=== PATIENT | female | born 1980 | race Caucasian/White ===

== ENCOUNTER 2023-07-05 10:30 | Observation (INO) | payer MEDICAID, SELFPAY ==
[2023-07-05] VITALS (21 sets, daily range): BP systolic 105–125; BP diastolic 50–82; PULSE 84–111; RESP 14–26; TEMP 36.6–38.1; O2SAT 94–99
--- NOTE | 2023-07-05 10:30 | RT.EKG_ITS ---
APPROVED REPORT Exam: Resting ECG Reason for Exam: sepsis Patient Location: E HR:106 bpm ECG Measurements Heart Rate 106 AXIS WV 153 P 55 QRSd 89 QRS 20 QT 332 T 43 QTc 442 Conclusion Sinus tachycardia...rate> 99 Low voltage, precordial leads...precordial leads <1.0mV Borderline ST elevation, anterior leads...ST >0.15mV in V1-V4
--- NOTE | 2023-07-05 11:00 | DI.CT_ITS ---
Exam(s) CT ABDOMEN PELVIS W EXAM: CT ABDOMEN PELVIS W CLINICAL HISTORY: recent appe, abdominal pain, ?abscess TECHNIQUE: Imaging Protocol: Axial computed tomography images with coronal and sagittal reformatted images were created and reviewed CONTRAST MATERIAL: Intravenous: Omnipaque 350 Contrast volume:100 mL Oral: No COMPARISON: No exams were available for comparison FINDINGS: ABDOMEN: Lung Bases: Normal where visualized. Liver: Normal density. No measurable mass. Portal, Superior Mesenteric, and Splenic Veins: Unremarkable. Gallbladder and Biliary Tract: Status post cholecystectomy. No significant biliary ductal dilatation . Pancreas: Normal density, no abnormal calcifications or inflammatory process. Spleen: Normal. Adrenals: No masses seen. Kidneys: Normal size, contour and axis. No radiodense stones or obstructive uropathy. No masses seen. Abdominal Aorta: Abdominal portion non-dilated. Mild atherosclerosis. Bowel: There is bowel wall thickening seen in the cecum and terminal ileum. There are a few fluid co llection seen in the right lower quadrant. The largest collection measures 4.2 x 4.8 cm. The findin gs are suspicious for abscesses. One of the fluid collections abuts and may infiltrate into the florencio cent right psoas muscle. Inflammatory stranding is seen in the right pericolic gutter there is a tra ce amount of free fluid in the pelvis. There is no evidence of bowel obstruction. The patient is st atus post appendectomy. Peritoneal Cavity: Please see the above section under bowel. No free air. Lymph Nodes: There enlarged lymph nodes seen in the right pelvis which are likely reactive. Bones: Within normal limits for the patient's age. Soft Tissues: Unremarkable. PELVIS: Bladder: Grossly unremarkable. Reproductive Organs: Unremarkable as visualized. Lymph Nodes: Within normal limits. Bones: Within normal limits for the patient's age. IMPRESSION: 1. Status post appendectomy. There are several fluid collections seen in the right lower quadrant in the surgical area. The largest measures 4.8 x 4.2 cm. These are most likely abscesses. There may be involvement with the right psoas muscle. 2. Findings were discussed with at 12:43 p.m. on 07/05/2023. RADIATION DOSE DELIVERED: 1,337.09mGy.cm Total DLP DATA REPOSITORY: All CT scans at this facility are submitted to the National Radiology Data Registry (NRDR) Dose Index Registry (DIR) with the [employer] (ACR). RADIATION OPTIMIZATION: All CT scans at this facility use at least one of these dose optimization te chniques: automated exposure control; mA and/or kV adjustment per patient size (includes targeted exa ms where dose is matched to clinical indication); or iterative reconstruction.
--- NOTE | 2023-07-05 11:06 | W.ED.GENAD ---
Discharge Plan Disposition Patient Disposition: Admit to [facility] Discharge Details Clinical Impression: Intra-abdominal abscess Primary Care Provider: Otis Philip ED Provider: Aurelio Ogden Home Meds and New Rx's Prescriptions: No Action methylphenidate HCl 20 mg Tablet 20 mg PO BID Medical Decision Making 42 yo female who states she had an appendectomy at [facility] 4 weeks ago and had a drain inserted for an abscess that she had for approximately a week and was removed, comes in with abdominal pain worsening over the past week. She states she went to [facility] yesterday and was told she had another absess, was admitted overnight and left ama this morning after multiple attempts at placing an IV. She arrives stable, caox4 speaking clearly. She has tenderness throughout the abdomen with the rlq being the most tender, no distention. Will obtain cbc, cmp, lipase and repeat ct abdomen/pelvis given continued pain wbc 12, pt with abscess on my read, spoke with Dr. Beckford from surgery who plans to admit, [place] [facility] [place]. Levo, flagyl ordered due to amoxicillin allergy Differential Diagnosis Differential Diagnosis: abscess, sbo, pancreatitis Imaging Data Radiologic Study: Attestation: I personally reviewed and interpreted this imaging study as follows: Imaging: CT Scan Radiologist's impression: Patient Name: Gonzalez Rudolph Unit #: [id number] Loc: ER ? Ordering Provider:? Aurelio Ogden M.D. Status: REG ER ? Primary Care Provider: Otis Philip Date of Exam: 07/05/23 Sex: F ? : 1980 Age: 42 ? Exam(s) a CT:CT abdomen & pelvis w Exam(s) CT ABDOMEN ? PELVIS W EXAM:? CT ABDOMEN ? PELVIS W CLINICAL HISTORY: ? recent appe, abdominal pain, ?abscess ? TECHNIQUE:? Imaging Protocol: Axial computed tomography images with coronal and sagittal reformatted images were created and reviewed CONTRAST MATERIAL:? Intravenous: Omnipaque 350 Contrast volume:100 mL Oral: No COMPARISON:? No exams were available for comparison FINDINGS: ABDOMEN: Lung Bases: Normal where visualized. Liver: Normal density. No measurable mass. Portal, Superior Mesenteric, and Splenic Veins: Unremarkable.? Gallbladder and Biliary Tract: Status post cholecystectomy.? No significant biliary ductal dilatation.? Pancreas: Normal density, no abnormal calcifications or inflammatory process. Spleen: Normal. Adrenals: No masses seen. Kidneys: Normal size, contour and axis. No radiodense stones or obstructive uropathy. No masses seen. Abdominal Aorta: Abdominal portion non-dilated. Mild atherosclerosis. Bowel: There is bowel wall thickening seen in the cecum and terminal ileum.? There are a few fluid collection seen in the right lower quadrant.? The largest collection measures 4.2 x 4.8 cm.? The findings are suspicious for abscesses.? One of the fluid collections abuts and may infiltrate into the adjacent right psoas muscle.? Inflammatory stranding is seen in the right pericolic gutter there is a trace amount of free fluid in the pelvis.? There is no evidence of bowel obstruction.? The patient is status post appendectomy.? Peritoneal Cavity: Please see the above section under bowel.? No free air. Lymph Nodes: There enlarged lymph nodes seen in the right pelvis which are likely reactive.? Bones: Within normal limits for the patient's age.? Soft Tissues: Unremarkable. PELVIS: Bladder: Grossly unremarkable.? Reproductive Organs: Unremarkable as visualized. Lymph Nodes: Within normal limits. Bones: Within normal limits for the patient's age.? IMPRESSION: 1. Status post appendectomy.? There are several fluid collections seen in the right lower quadrant in the surgical area.? The largest measures 4.8 x 4.2 cm.? These are most likely abscesses.? There may be involvement with the right psoas muscle.? 2. Findings were discussed with at 12:43 p.m. on 07/05/20 HPI General Mode of arrival: ambulatory. Date/Time Provider Initiated Documentation: 07/05/23 10:35. Limitations to Documentation: no limitations. Information obtained by: patient. History of Present Illness 42 year old F presents to the emergency department with the chief complaint of abdominal pain, described as moderate, Patient started experiencing this week(s) (1) and it has been constant. No relieving factors improve symptom(s), No exacerbating factors reported . Patient notes no other symptoms.. Related Data Home Medications Medication Instructions Recorded Confirmed methylphenidate HCl 20 mg tablet 20 mg PO BID 07/05/23 07/05/23 Allergies Allergy/AdvReac Type Severity Reaction Status Date / Time amoxicillin Allergy Anaphylaxis Unverified 07/05/23 11:12 bee venom protein (honey bee) Allergy Anaphylaxis Unverified 07/05/23 11:36 codeine Allergy Hives Unverified 07/05/23 11:36 Penicillins Allergy Anaphylaxis Unverified 07/05/23 11:12 General Stated Complaint: Abd Prob DEBBIE: 3 Review of Systems All systems reviewed & are unremarkable except as noted in HPI and below Constitutional Constitutional: Denies chills, Denies fever(s) and Denies weakness Cardiovascular Cardiovascular: Denies chest pain and Denies dyspnea Respiratory Respiratory: Denies cough and Denies dyspnea Gastrointestinal Gastrointestinal: Reports abdominal pain, Denies nausea and Denies vomiting Musculoskeletal Musculoskeletal: Denies joint swelling Integumentary/Breasts Skin/Breast: Denies rash Neurologic Neurologic: Denies weakness PFSH All Active Problems (Updated 07/05/23 @ 12:33 by Aurelio Ogden MD) Intra-abdominal abscess (Acute) Social History Smoking/Tobacco Use Status: Current every day Smoking risk assessment performed?: Yes Alcohol Intake: current Drug use: Never Substance use type: does not use Housing: apartment Do you feel safe at home: Yes Do you feel safe in your relationship?: Yes Additional Social history: live with grand children, dog and cat Exam Const General: no acute distress Orientation: alert HENMT Head: normal to inspection Ears: external ears normal General nose exam: external nose normal Mouth: moist mucous membranes Eyes General: appearance normal, both eyes and all related structures Neck Neck: normal visual inspection Resp Effort & Inspection: normal respiratory effort and able to speak in complete sentences Cardio Rate: regular rate GI Palpation: soft and tender Skin General skin exam: no rashes or lesions noted Neuro General: patient alert and patient oriented x3 Extrem General: normal to inspection Psych Mental Status: mental status grossly normal Course Vital Signs Vital signs: Vital Signs Temperature 36.8 C 07/05/23 10:38 Pulse 110 H 07/05/23 10:38 Respiratory Rate 24 07/05/23 10:38 Blood Pressure 125/62 07/05/23 10:38 Pulse Oximetry 97 07/05/23 10:38 Temperature 36.8 C 07/05/23 10:38 Temperature Source Oral 07/05/23 10:38 Pulse 110 H 07/05/23 10:38 Respiratory Rate 24 07/05/23 10:38 Respiratory Effort Normal 07/05/23 10:51 Blood Pressure 125/62 07/05/23 10:38 Pulse Oximetry 97 07/05/23 10:38 Oxygen Delivery Method Room Air 07/05/23 10:38 Oxygen Flow Rate 0 07/05/23 10:38 Pain Level 8 07/05/23 10:38 Lab/Test Results Lab/Test Results: 07/05/23 11:01 Blood Blood Culture - Pending 07/05/23 11:01 Blood Blood Culture - Pending
[2023-07-05] MEDS: Omnipaque 350 MG/ML 100 ML BTL IJ (11:22)
[2023-07-05] MEDS: Normal Saline - Diluent 50 ML VIAL IJ (11:22)
[2023-07-05 11:23] LABS: Abs Immature Grans 0.05 10^3/uL (0.0-0.06); Absolute Basophil Count 0.03 10^3/uL (0.0-0.2); Absolute Lymphocyte Count 1.71 10^3/uL (1.2-3.4); Absolute Neutrophil Count 9.99 10^3/uL (1.2-6.7); Basophils % 0.2; Eosinophils % 0.2; HCT 34.1 % (36.0-46.0); HGB 11.7 g/dL (11.2-15.7); Immature Grans % 0.4; Lymphocytes % 13.3; MCH 29.7 pg (27.0-33.0); MCHC 34.3 % (32.0-36.0); MCV 87 fL (80-95); MPV 8.5 fL (8.0-11.0); Neutrophils % 77.9; Platelet Count 241 10^3/uL (130-400); RBC 3.94 10^6/uL (3.93-5.22); RDW-SD 38.4 fL; WBC 12.82 10^3/uL (4.4-10.8)
[2023-07-05 11:25] LABS: Absolute Eosinophil Count 0.03 10^3/uL (0.0-0.7); Absolute Monocyte Count 1.03 10^3/uL (0.1-0.8)
[2023-07-05 11:34] LABS: Bilirubin Large (Negative); Blood Large (Negative); Clarity Cloudy (Clear); Glucose 100 mg/dL (Negative); Ketones >=160 mg/dL (Negative); Leukocyte Esterase Trace (Negative); Nitrite Positive (Negative); Specific Gravity 1.025 (1.005-1.025); Urobilinogen >=8.0 mg/dL (Up to 0.2); pH 5.5 (5-8)
[2023-07-05] MEDS: Normal Saline 1,000 ML 1000 ML IV (11:44)
[2023-07-05 11:45] LABS: Bacteria Many HPF (Negative); Epithelial Cells Many HPF (Negative); Mucus Moderate (Negative); Other Cells Negative (Negative)
[2023-07-05] MEDS: HYDROmorphone 2 MG/ML SYR 1 MG IVP ×4 (11:45→20:32)
[2023-07-05 11:46] LABS: Crystals Few Calcium Oxalate HPF (Negative)
[2023-07-05 11:48] LABS: C & S Indicated? Yes; Casts 3-5 Hyaline LPF (Negative)
[2023-07-05 12:02] LABS: ALT 37 U/L (14-59); AST 28 U/L (15-37); Alkaline Phosphatase 116 U/L (46-116); Anion Gap 9.4 mmol/L (3-11); BUN 13 mg/dL (7-18); Bilirubin, Total 2.8 mg/dL (0.2-1.0); CO2 23.6 mmol/L (21.0-32.0); CREATININE 0.8 mg/dL (0.55-1.02); Calcium 8.4 mg/dL (8.5-10.1); Chloride 99 mmol/L (98-107); Estimated GFR 94.87 (mL/min/1.73m2); Glucose 112 mg/dL (74-106); Lipase 21 U/L (16-77); Magnesium 1.5 mg/dL (1.8-2.4); Potassium 3.2 mmol/L (3.5-5.1); Sodium 132 mmol/L (136-145); TSH (W/Ref FT4) 1.65 uIU/mL (0.36-3.74); Total Protein 6.7 g/dL (6.4-8.2)
[2023-07-05 12:20] LABS: Procalcitonin 0.1 ng/mL
[2023-07-05] MEDS: levoFLOXacin 750 MG/150 ML BAG 100 MG IVPB (12:40)
--- NOTE | 2023-07-05 13:13 | HPE_ITS ---
Date of service: 07/05/23 Time of Service: 13:14 Assessment and Plan Assessment and plan (1) Intra-abdominal abscess: Status: Acute Assessment and plan: We talked about postoperative abscesses, especially in the setting of appendicitis. Given the location, character of the abscess, I think it is an favorable candidate for percutaneous drainage. Was started around broad- spectrum antibiotics already, and I will reach out to [facility] to speak with her interventional radiologist regarding drainage. History of Present Illness History of Present Illness Chief Complaint: Abdominal pain Narrative: Gonzalez is 42 years old. She underwent laparoscopic appendectomy approximately 3 and half weeks ago for what sounds like perforated appendicitis. An operative drain was left in place. Her immediate postop course sounds fairly uncomplicated. She was discharged home with the drain, and monitored its output over the next few days. It was removed in office about a week and a half after surgery. Over the following week, she had increasing abdominal pain after returning to work. She describes it as sharp, stabbing, and worse when laying on her right side. She was started on Cipro and Flagyl empirically, and eventually followed up in the emergency department because of increasing pain. She went to [place] yesterday, and underwent a CAT scan of the abdomen and p keya that demonstrated a pelvic abscess. She was admitted but left AGAINST MEDICAL ADVICE when she was dissatisfied with the care. She came here to the emergency department with similar complaints. White blood cell count was found to be about 12,000. She underwent a CAT scan here that showed that abscess in the right lower quadrant. Other past surgical history significant for cholecystectomy. Is an active tobacco smoker. Review of Systems Constitutional Constitutional: Reports fatigue and Reports fever(s) Eyes Eyes: Reports system reviewed and no additional complaints, except as documented ENT Ears, Nose, Mouth, and Throat: Reports system reviewed and no additional complaints, except as documented Cardiovascular Cardiovascular: Denies chest pain and Denies dyspnea Respiratory Respiratory: Denies chest congestion, Reports cough and Denies dyspnea Gastrointestinal Gastrointestinal: Reports abdominal pain, Denies change in stool character and Reports nausea Genitourinary Genitourinary: Reports system reviewed and no additional complaints, except as documented Musculoskeletal Musculoskeletal: Reports system reviewed and no additional complaints, except as documented Psychiatric Psychiatric: Reports change in appetite Endocrine Endocrine: Reports cold intolerance, Reports fatigue and Denies heat intolerance Hematologic/Lymphatic Hematologic/Lymphatic: Denies easy bleeding and Denies easy bruising [facility] All Active Problems Intra-abdominal abscess (Acute) Social History Smoking/Tobacco Use Status: Current every day Smoking risk assessment performed?: Yes Alcohol Intake: current Drug use: Never Substance use type: does not use Housing: apartment Do you feel safe at home: Yes Do you feel safe in your relationship?: Yes Additional Social history: live with grand children, dog and cat Meds Allergies and Home Medications Allergies Allergy/AdvReac Type Severity Reaction Status Date / Time amoxicillin Allergy Anaphylaxis Unverified 07/05/23 11:12 bee venom protein (honey bee) Allergy Anaphylaxis Unverified 07/05/23 11:36 codeine Allergy Hives Unverified 07/05/23 11:36 Penicillins Allergy Anaphylaxis Unverified 07/05/23 11:12 Home Medications Medication Instructions Recorded Confirmed Type methylphenidate HCl 20 mg tablet 20 mg PO BID 07/05/23 07/05/23 History Exam Const General: cooperative and comfortable Orientation: alert, awake and oriented x3 HENMT Head: normal to inspection Eyes General: appearance normal, both eyes and all related structures Neck Neck: normal visual inspection and full ROM Resp Effort & Inspection: normal respiratory effort and able to speak in complete sentences Auscultation: clear to auscultation bilaterally Cardio Jugular venous pressure: no JVD Rate: regular rate Rhythm: regular rhythm GI Inspection: normal to inspection Palpation: soft, no hernias and tender (Right abdomen) Percussion: normal to percussion Auscultation: normal bowel sounds Skin General skin exam: no rashes or lesions noted Neuro General: patient alert, patient awake and patient oriented x3 Results Labs 07/05/23 11:08 07/05/23 11:08 Labs: Laboratory Results - last 24 hr 07/05/23 07/05/23 07/05/23 11:08 11:08 11:08 WBC 12.82 H RBC 3.94 Hgb 11.7 Hct 34.1 L MCV 87 MCH 29.7 MCHC 34.3 RDW 12.0 Plt Count 241 MPV 8.5 Immature Gran % 0.4 Neutrophils % 77.9 Lymphocytes % 13.3 Monocytes % 8.0 Eosinophils % 0.2 Basophils % 0.2 Nucleated RBC % 0.0 Absolute Neutrophils 9.99 H Absolute Lymphocytes 1.71 Absolute Monocytes 1.03 H Absolute Eosinophils 0.03 Absolute Basophils 0.03 Sodium 132 L Potassium 3.2 L Chloride 99 Carbon Dioxide 23.6 Anion Gap 9.4 BUN 13 Creatinine 0.8 Est GFR (CKD-EPI 2020) 94.87 Glucose 112 H Calcium 8.4 L Magnesium 1.5 L Total Bilirubin 2.8 H AST 28 ALT 37 Alkaline Phosphatase 116 Total Protein 6.7 Albumin 3.0 L Lipase 21 Procalcitonin 0.1 TSH 1.65 Urine Color Urine Clarity Urine pH Ur Specific [place] Urine Protein Urine Ketones Urine Blood Urine Nitrite Urine Bilirubin Urine Urobilinogen Ur Leukocyte Esterase Urine RBC Urine WBC Ur Epithelial Cells Urine Crystals Urine Bacteria Urine Casts Urine Mucus Urine Other Ur Culture Indicated? Urine Glucose 07/05/23 11:23 WBC RBC Hgb Hct MCV MCH MCHC RDW Plt Count MPV Immature Gran % Neutrophils % Lymphocytes % Monocytes % Eosinophils % Basophils % Nucleated RBC % Absolute Neutrophils Absolute Lymphocytes Absolute Monocytes Absolute Eosinophils Absolute Basophils Sodium Potassium Chloride Carbon Dioxide Anion Gap BUN Creatinine Est GFR (CKD-EPI 2020) Glucose Calcium Magnesium Total Bilirubin AST ALT Alkaline Phosphatase Total Protein Albumin Lipase Procalcitonin TSH Urine Color Dark Yellow Urine Clarity Cloudy Urine pH 5.5 Ur Specific [place] 1.025 Urine Protein >=300 H Urine Ketones >=160 H Urine Blood Large H Urine Nitrite Positive H Urine Bilirubin Large H Urine Urobilinogen >=8.0 H Ur Leukocyte Esterase Trace H Urine RBC 10-20 H Urine WBC 5-10 Ur Epithelial Cells Many Urine Crystals Few Calcium Oxalate Urine Bacteria Many Urine Casts 3-5 Hyaline Urine Mucus Moderate Urine Other Negative Ur Culture Indicated? Yes Urine Glucose 100 H Last Vital Signs Temp 98.3 F 07/05/23 10:38 Pulse 110 H 07/05/23 10:38 Resp 24 07/05/23 10:38 BP 125/62 07/05/23 10:38 Pulse Ox 97 07/05/23 10:38 Time Spent Time spent with Patient: 40-54 minutes Time was spent: preparing to see the patient(eg.review tests), indepentently interpreting results and counseling the patient
[2023-07-05] MEDS: Normal Saline 1,000 ML 150 ML IV (14:52)
[2023-07-05] MEDS: Normal Saline Flush 10 ML SYR IVP (14:53)
[2023-07-05] MEDS: metroNIDAZOLE 500 MG/100 ML BAG 100 MG IVPB (14:53)
[2023-07-05] MEDS: MAGNESIUM SULFATE 2 GM/50 ML BAG IVPB (15:20)
[2023-07-05] MEDS: Ondansetron 4 MG/2 ML VIAL IVP (17:23)
[2023-07-05] MEDS: Ketorolac 30 MG/ML VIAL IVP (17:23)
[2023-07-05] MEDS: ACETAMINOPHEN 1,000 MG/100 ML BTL 400 MG IVPB (17:23)
[2023-07-05] MEDS: Lactated Ringers 1,000 ML 75 ML IV (17:24)
[2023-07-05 20:03] LABS: HCT 33.4 % (36.0-46.0); HGB 11.2 g/dL (11.2-15.7); MCH 29.6 pg (27.0-33.0); MCHC 33.5 % (32.0-36.0); MCV 88 fL (80-95); MPV 8.4 fL (8.0-11.0); Platelet Count 224 10^3/uL (130-400); RBC 3.78 10^6/uL (3.93-5.22); RDW 12.1 % (11.7-14.6); RDW-SD 38.9 fL; WBC 12.08 10^3/uL (4.4-10.8)
[2023-07-06] MEDS: Ketorolac 30 MG/ML VIAL IVP ×2 (00:11→08:03)
[2023-07-06] MEDS: metroNIDAZOLE 500 MG/100 ML BAG 100 MG IVPB ×4 (00:12→23:55)
[2023-07-06 03:07] VITALS: BP 101/65; PULSE 79; RESP 16; TEMP 36.3; O2SAT 96
[2023-07-06] MEDS: ACETAMINOPHEN 1,000 MG/100 ML BTL 400 MG IVPB ×2 (08:02→19:50)
[2023-07-06] MEDS: Ondansetron 4 MG/2 ML VIAL IVP ×2 (08:03→19:50)
[2023-07-06] MEDS: Normal Saline Flush 10 ML SYR IVP (10:49)
[2023-07-06] MEDS: HYDROmorphone 2 MG/ML SYR 1 MG IVP (10:49)
--- NOTE | 2023-07-06 16:15 | PDOC.CMIN ---
Date of service: 07/06/23 Time of Service: 16:15 Care Management Initial Assmt Initial Assessment REASON FOR HOSPITALIZATION:: Intra-abdominal abscess PREVIOUS FUNCTIONAL STATUS/SOCIAL/FAMILY SUPPORTS:: Resides in [place], reportedly left [facility] because she was unhappy with her care. CURRENT FUNCTIONAL STATUS:: Inpatient, down and back to [facility] [place]. ADVANCE DIRECTIVES:: None on file. Has patient been provided with info about the portal/API?: Yes Did the patient sign up for the portal?: No INSURANCE COVERAGE / FINANCIAL ISSUES:: Medicaid PRIMARY CARE PHYSICIAN:: Otis Philip POTENTIAL DISCHARGE NEEDS:: Follow up appointments, possible drain, IV ABX; awaiting treatment recommendations. PATIENT/FAMILY EDUCATION NEEDS:: Review discharge instructions, discuss Ask Me Three. ANTICIPATED BARRIERS TO DISCHARGE:: None identified. TRANSPORTATION:: Via private vehicle with family, or via RCT. PLAN:: Gonzalez continues to be closely monitored. CM continues to follow. PFSH All Active Problems Intra-abdominal abscess (Acute) Social History Smoking/Tobacco Use Status: Current every day Smoking risk assessment performed?: Yes Alcohol Intake: current Drug use: Never Substance use type: does not use Housing: apartment Do you feel safe at home: Yes Do you feel safe in your relationship?: Yes Additional Social history: live with grand children, dog and cat
[2023-07-06 16:28] VITALS: BP 115/66; PULSE 90; RESP 12; TEMP 36.9; O2SAT 99
[2023-07-06] MEDS: levoFLOXacin 750 MG/150 ML BAG 100 MG IVPB (18:12)
[2023-07-06 23:40] VITALS: BP 111/66; PULSE 92; RESP 16; TEMP 36.7; O2SAT 96
[2023-07-07] MEDS: Ondansetron 4 MG/2 ML VIAL IVP (04:33)
[2023-07-07] MEDS: Lactated Ringers 1,000 ML 75 ML IV (04:45)
--- NOTE | 2023-07-07 06:33 | NUR.NOTE ---
Ariana offered this am. pt reported she wants to take it after she eats. Nursing Note:
[2023-07-07] MEDS: Methylphenidate 10 MG TAB 20 MG PO (08:41)
[2023-07-07] MEDS: Psyllium PKT 1 EACH PO (08:42)
--- NOTE | 2023-07-07 09:53 | W.PM.DS.N ---
Date of service: 07/07/23 Time of Service: 09:53 DS: Diagnosis Discharge Diagnosis (1) Intra-abdominal abscess: Status: Acute Asessment and Plan: She underwent percutaneous drainage of a postoperative appendectomy abscess. We will see her in the office in follow-up. We will continue Levaquin and Flagyl as outpatient enteral antibiotics Discharge Plan Disposition Patient Disposition: Home Condition: Good Discharge Details Reason For Visit: Intraabdominal Abscess Admit Date/Time: 07/05/23 12:24 Admit Provider: Vladislav Beckford Attending Provider: Vladislav Beckford Primary Care Provider: Otis Philip [facility] Course Hospital Course: Gonzalez is a 42-year-old woman who underwent appendectomy at [facility] for perforated appendicitis approximately 4 weeks ago. Her postoperative course has been complicated by abscess in the right lower quadrant. She was admitted with leukocytosis and fevers. She underwent percutaneous drainage of the abscess, and had a favorable response with regards to her physiology. We discussed drain management as an outpatient, and she will continue with enteral antibiotics and follow-up in the office. Home Meds and New Rx's Prescriptions: New levofloxacin 750 mg tablet 750 mg PO DAILY Qty: 8 0RF Rx Instructions: Take 1 tablet by mouth every day metronidazole 500 mg tablet 500 mg PO Q8H Qty: 24 0RF Rx Instructions: Take 1 tablet by mouth in the morning, 1 tablet by mouth in the afternoon, and 1 tablet by mouth in the evening every day until complete hydromorphone [Dilaudid] 2 mg tablet 2 mg PO Q6H PRNQty: 12 0RF metronidazole 500 mg Tablet 500 mg PO Q8H Qty: 24 0RF Rx Instructions: Take 1 tablet by mouth every 8 hours until complete levofloxacin 750 mg Tablet 750 mg PO QAM Qty: 8 0RF Rx Instructions: Take 1 tablet by mouth every day Continued methylphenidate HCl 20 mg Tablet 20 mg PO BID Discharge Instructions Additional Instructions: Gonzalez, we are happy to take care of you for that you have been experiencing complications after appendectomy. As you probably recall, we admitted you to the hospital after a CAT scan detected an abscess (or infected fluid collection) in the area of your previous appendectomy. You went down to [facility] to have a percutaneous drain placed into the collection, and it seems to be working well. We will continue your antibiotics as an outpatient, and see you in the office for ongoing treatment with the drain. Like we talked about while you are in the hospital, I would encourage you to flush the drain at least once if not twice per day. I usually tell patient still about 10 cc of saline into the drain, and reconnect it after collapsing the bulb so that the reexpansion of the bulb applies suction to the catheter itself. Please record the total volume that comes out every single day. You should shower at least once daily. Make sure that all of your bandages are removed, and you wash her abdomen with warm soapy water. Pat it dry afterwards. If you need a Band-Aid to dress the drain site, that is fine. If there is no drainage from around it, it does not need to bandage. And like we talked about, if there is any change in the character of the fluid, like it turns bright red like blood, or white like yogurt, please let us know. Otherwise we will look forward to seeing you in the office. Have also provided a prescription for some stronger pain medications in case she needs them in the next week. Stand Alone Forms: Nursing Discharge Form Referrals: Vladislav Beckford MD [ [facility] STAFF PHYSICIAN] - (July 12 at 1:30 PM) Activity:: Activity as Tolerated Equipment/Supplies:: 10 mL saline flushes Diet:: Carb Counting DS: Summary Time Spent with Patient providing and/or coordinating discharge services: Less than 30 minutes Status at Discharge Functional status at discharge: independent ambulation Overall status at discharge: patient is back to baseline Mental Status: mental status grossly normal Speech and Movement: speech and movement normal Mood: congruent mood Affect: normal affect Exam GI Other: Abdomen is softer, less tender. She is less distended. Her incisions are clean. The drainage of the abscess is serosanguineous. Psych Mental Status: mental status grossly normal Speech and Movement: speech and movement normal Mood: congruent mood Affect: normal affect DS: Data Vitals/I&O Vitals and I&O: Vital Signs Temperature 98.1 F 07/06/23 23:40 Temperature Source Tympanic 07/06/23 23:40 Pulse 92 H 07/06/23 23:40 Pulse Rhythm Regular 07/06/23 20:09 Pulse 103 H 07/05/23 13:20 Respiratory Rate 16 07/06/23 23:40 Respiratory Effort Normal 07/06/23 20:09 Respiratory Depth Normal 07/06/23 20:09 Respiratory Pattern Normal 07/06/23 20:09 Blood Pressure 111/66 07/06/23 23:40 Pulse Oximetry 96 07/06/23 23:40 Oxygen Delivery Method Room Air 07/06/23 23:40 Oxygen Flow Rate 0 07/06/23 23:40 Pain Level 0 07/06/23 23:40 Comment VS taken at time of admission 07/05/23 14:06 Intake & Output 07/06/23 07/06/23 07/07/23 11:59 23:59 11:59 Intake Total 1310 / 1920 610 / 1920 357.083 / 357.083 Output Total Balance 1310 / 1860 550 / 1860 342.083 / 342.083 Intake: IV 1310 / 1670 360 / 1670 357.083 / 357.083 Oral 240 / 240 Injectate R abdominal Output: Drainage R abdominal Other: Urine Appearance Clear Clear Comment pt reports she has urinated a couple of times today. per patient voided in toilet Data Completed and Pending Labs on day of discharge: Preliminary micro results at discharge 07/05/23 11:50 Blood Culture - Preliminary Blood NO GROWTH 24 HOURS 07/05/23 12:07 Blood Culture - Preliminary Blood NO GROWTH 24 HOURS PFSH All Active Problems Intra-abdominal abscess (Acute) Social History Smoking/Tobacco Use Status: Current every day Smoking risk assessment performed?: Yes Alcohol Intake: current Drug use: Never Substance use type: does not use Housing: apartment Do you feel safe at home: Yes Do you feel safe in your relationship?: Yes Additional Social history: live with grand children, dog and cat Time Spent with Patient Time Spent with Patient: <45 minutes Time was spent: preparing to see the patient(eg.review tests), referring, communicating with other health healthcare network consultant and counseling the patient
[2023-07-07] MEDS: metroNIDAZOLE 500 MG TAB PO (09:54)
[2023-07-07] MEDS: levoFLOXacin 500 MG, levoFLOXacin 250 MG 750 MG PO (09:55)
--- NOTE | 2023-07-07 13:20 | W.PM.PROGNOT ---
Date of Service Date of service: 07/07/23 Time of Service: 13:20 Assessment and Plan Assessment and plan (1) Intra-abdominal abscess: Status: Acute Assessment and plan: Dian seems to be doing excellent after percutaneous drainage of her abscess. Of switch her antibiotics over from intravenous to by mouth. I will continue these as an outpatient for total of 10 days of therapy. We reviewed basic drain management and care. She seems confident and competent to take care of this at home on her own. We will make arrangements for outpatient follow-up, and continue her antibiotics until that time. Subjective Subjective Interval history since last seen: She was able to get down to [facility] yesterday for percutaneous drainage of the right lower quadrant abscess. Since then, she has been feeling good. She denies any subjective sense of fevers. She is tolerating regular food without any nausea or vomiting. Exam GI Other: Abdomen is soft and nondistended. She is a little bit tender on the right side. It certainly better than before. Drainage is serosanguineous. Objective Last Vital Signs Temp 98.1 F 07/06/23 23:40 Pulse 92 H 07/06/23 23:40 Resp 16 07/06/23 23:40 BP 111/66 07/06/23 23:40 Pulse Ox 96 07/06/23 23:40 Time Spent with Patient Time Spent with Patient: <25 minutes Time was spent: preparing to see the patient(eg.review tests) and counseling the patient
--- NOTE | 2023-07-07 14:13 | PDOC.CMDIS ---
Date of service: 07/07/23 Time of Service: 14:14 LACE Index Scoring Tool Questions: Length of Stay (in days): 2 Was the patient admitted via the E.D.?: Yes E.D. Visits: 0 Answers: Total Score: 5 Risk of Readmission: Low Risk Care Management Discharge Plan Reason for Hospitalization: Intra-abdominal abscess Discharge Plan: Gonzalez will return home on oral abx, with drain in place; she is managing drain well and has instructions on keeping it clean. She will follow up with surgical services next week, follow her plan of care and transport via private vehicle with family. Patient/Family Education Needs: Review discharge and post discharge care instructions, follow up appointments; self care needs upon discharge; discuss [employer].
--- NOTE | 2023-07-10 13:32 | W.PM.PROGNOT ---
Date of Service Date of service: 07/06/23 Time of Service: 06:50 Assessment and Plan Assessment and plan (1) Intra-abdominal abscess: Status: Acute Assessment and plan: We have made arrangements for transfer down to [facility] today for a down and back procedure to drain the intraperitoneal abscess. We will continue the antibiotics in the meantime. Subjective Subjective Interval history since last seen: Generally, she feels about the same. Her pain might be a little bit better controlled with the changing around of her medications. She denies any nausea or vomiting. Exam GI Other: Abdomen soft, and not very distended. She is back tender on the right side. Objective Last Vital Signs Temp 98.1 F 07/06/23 23:40 Pulse 92 H 07/06/23 23:40 Resp 16 07/06/23 23:40 BP 111/66 07/06/23 23:40 Pulse Ox 96 07/06/23 23:40 Time Spent with Patient Time Spent with Patient: <25 minutes Time was spent: preparing to see the patient(eg.review tests), counseling the patient and care coordination
== END 2023-07-07 13:10 | disposition home or self-care (01) ==
LOC: ER 12:33 → MS 13:45
PROVIDERS: Admitting Provider Surgery; Emergency Provider Emergency Medicine; PCP Family Medicine; Visit Provider Surgery
DX: T81.43XA Infection following a procedure, organ and space surgical site, initial encounter (principal); K65.1 Peritoneal abscess; R00.0 Tachycardia, unspecified; R94.31 Abnormal electrocardiogram [ECG] [EKG]; F17.210 Nicotine dependence, cigarettes, uncomplicated
CPT/HCPCS: 36415; 80053; 83690; 84145; 85027; 87040; 93005; 96361; 96365; 96366; 96375; 96376; 99285; 74177; 81003; 81015; 83735; 84443; 85025; 87086; 93010; G0378; J0131; J1170; J1885; J1956; J2405; J3490